=== PATIENT | male | born 1955 | race Caucasian/White ===

== ENCOUNTER 2017-11-24 08:10 | Day surgery (SDC) | payer OTHER ==
[~2017-11-24] VITALS: Ht 177.8 cm; Wt 98.9 kg
--- NOTE | 2017-11-24 09:53 | NUR ---
11/24/17 0953 Deandra Castro 0936 PT ARRIVED IN PACU SLEEPY. 0945 DR AT BEDSIDE TALKING TO PT. NO C/O'S. PACKING STRING VISIBLE AND TIED TO OUTSIDE OF NOSE. NO DRAINAGE NOTED. 0909 PT SIPPING ON WATER.
--- NOTE | 2017-11-24 10:08 | NUR ---
ICED WATER AND APPLESAUCE GIVEN. CALL LIGHT W/IN REACH. SPOUSE @ BS
--- NOTE | 2017-11-24 10:19 | NUR ---
PT ARRIVED LATE DUE TO WRONG TIME GIVEN BY 'S OFFICE. STAFF FIT PT BACK IN SCHEDULE AND DID A GREAT JOB. PT SEEMED PREPARED WELL HIS CARLEY. HAD A PRAYER WITH PT, WILL FOLLOW NEEDED
[2017-11-24] MEDS ORDERED: MOTRIN IB200 MG PO (10:29)
[2017-11-24] MEDS ORDERED: NORCO 5-325 TA1 EACH PO (10:30)
--- NOTE | 2017-11-24 10:37 | NUR ---
MORE ICED WATER GIVEN. MORE APPLESAUCE GIVEN. PATIENT TOLERATING THE APPLESAUCE WELL.
--- NOTE | 2017-11-24 11:10 | NUR ---
PT UP TO BR W/RN STANDBY. PT AMBULATES WELL AND REPORTS SUCCESSFUL VOID. PT REQ DC HOME. DC INSTRUCTIONS GIVEN IN PRESENCE OF SPOUSE AND BOTH VERBALIZE UNDERSTANDING.
--- NOTE | 2017-11-24 11:41 | NUR ---
LE 1120: PT DRESSES SELF IN PRESENCE OF SPOUSE AND TRANSFERS HIMSELF TO WELL AND IS DC HOME.
--- NOTE | 2017-12-01 13:32 | OR ---
[facility] [address], [place] [address] Signed DATE OF OPERATION: 11/24/2017 SURGEON: Manfred Brannon MD PREOPERATIVE DIAGNOSIS: Nasal obstruction due to septal deformity and inferior turbinate hypertrophy. POSTOPERATIVE DIAGNOSIS: Nasal obstruction due to septal deformity and inferior turbinate hypertrophy. PROCEDURE: Septoplasty, cautery of the inferior turbinates. ANESTHESIA: General LMA; SURFACE MOUNT TECHNOLOGY OPERATOR, Shane. PREOPERATIVE HISTORY: Kostas is a 61-year-old male with a long history of nasal obstruction, frequent infections, congestion, drainage, unresponsive to appropriate medications. CAT scan has been negative for sinus pathology. Exam in the office has shown a septal deformity and inferior turbinate hypertrophy, and he is taken to the operating for the above-mentioned procedures. OPERATIVE PROCEDURE AND FINDINGS: After informed consent, the patient was taken to the operating room, placed in the supine position where general LMA anesthesia was induced. The patient and procedure were verified. The patient received preoperative intranasal oxymetazoline and intravenous Ancef. Headlight speculum exam of the nasal cavity showed septal deformity bilaterally, inferior spurs which were obstructive. Septal mucosa was injected with 1% lidocaine with epi. Mucosa was elevated off the deviated septal bone and cartilage and this was removed with the Winnie. Septum was medialized, narrowed. Airway improved after this procedure. Inferior turbinates were then cauterized starting on the left side long handle needle point cautery. Multiple passes on the medial and inferior surface of the inferior turbinate starting anteriorly and extending all the way back posteriorly. Excellent decongestion of the turbinate was obtained. Same procedure on the right inferior turbinate. Packing was then placed. Trimmed Merocel equal amount each side coated with Neosporin, tied anteriorly over a pad. Hemostasis was verified. The pharynx was suctioned clear of blood secretions. The patient was then awakened, extubated, Electronically Signed By: MANFRED BRANNON MD 12/01/17 1332 PATIENT NAME: MARY SAMANO OPERATIVE REPORT DATE OF : 57 REPORT #: [id number] PHYSICIAN: MANFRED BRANNON MD PCP: MARIA ELENA SPANGLER MD REPORT IS CONFIDENTIAL AND NOT TO BE RELEASED WITHOUT AUTHORIZATION [facility] [address] [facility] [place], [place] [address] Signed transported to the recovery room in good condition. No complications. BLOOD LOSS: Minimal. SPECIMEN: No specimen. DRAINS: No drains. PACKING: One piece of Merocel each nostril. Manfred Brannon MD GC/MODL /[id number] Copies: ~ Electronically Signed By: MANFRED BRANNON MD 12/01/17 1332 PATIENT NAME: MARY SAMANO OPERATIVE REPORT DATE OF : 57 REPORT #: [id number] PHYSICIAN: MANFRED BRANNON MD PCP: MARIA ELENA SPANGLER MD REPORT IS CONFIDENTIAL AND NOT TO BE RELEASED WITHOUT AUTHORIZATION
== END 2017-11-24 11:20 | disposition home or self-care (01) ==
LOC: DS 08:10
PROVIDERS: Otolaryngology
PROC: 09SM0ZZ Reposition Nasal Septum, Open Approach (ICD-10-PCS; principal; 2017-11-24 08:30)
PROC: 095L0ZZ Destruction of Nasal Turbinate, Open Approach (ICD-10-PCS; 2017-11-24 08:30)
DX: J34.2 Deviated nasal septum (principal); J34.3 Hypertrophy of nasal turbinates; J32.9 Chronic sinusitis, unspecified; G47.30 Sleep apnea, unspecified; Z99.89 Dependence on other enabling machines and devices
CPT/HCPCS: 00160; J0690; J1100; J2405; J2704; J2765; J3010; J7120

== ENCOUNTER 2022-05-27 07:34 | Day surgery (SDC) | payer MEDICARE, OTHER ==
[~2022-05-27] VITALS: Ht 177.8 cm; Wt 103.0 kg
[~2022-05-27 07:34] MED LIST: BACTRIM DS TAB1 EACH PO; DIOVAN40 MG PO; MOTRIN IB200 MG PO; NORCO 5-325 TA1 EACH PO; VALACYCLOVIR1000 MG PO; VITAMIN D250 MCG PO; ZESTRIL20 MG PO
--- NOTE | 2022-05-27 09:02 | NUR ---
VISITED WITH PT PRIOR TO PROCEEDURE. ARRIVED WHILE WE WERE TALKING. PT EXPRESSED BEING READY FOR THE PROCEEDURE. AFTER STATING THAT PROCEEDURES WERE RUNNING LATE PT EXPRESSED BEING READY TO GO HOME AND EAT SOMETHING. PRAYED WITH PT AND .
--- NOTE | 2022-05-27 10:14 | NUR ---
05/27/22 1014 Sheets,Violetta 1009 PT ARRIVED TO PACU ON 3L VIA NC, PT WAKES TO VERBAL STIMULI. VSS. DECREASED HR BASELINE FOR PT. PT ENCOURAGED TO PASS GAS.
--- NOTE | 2022-05-27 12:23 | OR ---
[facility] [address] [place], [place] [address] Signed DATE OF OPERATION: 05/27/2022 SURGEON: Xochitl Matthew MD PREOPERATIVE DIAGNOSES: 1. Personal history of colonic polyps in 2016 at age 60. 2. Minimal diverticulosis. 3. Brother of metastatic colon cancer age 67. POSTOPERATIVE DIAGNOSES: 1. Minimal internal hemorrhoids with single internal anal skin tag. 2. 4 mm polyps at 35 cm, 100 cm, 120 cm and 115 cm. PROCEDURE: Colonoscopy with hot biopsy. ESTIMATED BLOOD LOSS: None. INDICATIONS: Kostas is a 66-year-old gentleman who returns for a followup colonoscopy. He had a barium enema in 2013 at the age of [address] Eckert. This was unremarkable. He came in 2015 at the age of 60 for a colonoscopy. He had a 5 mm tubular adenoma removed from his colon. He had minimal diverticulosis. He did well with Versed and fentanyl. His brother had of metastatic colon cancer at the age of 67. Kostas returns on the 5-year rotation. He has come through [address] and he said his memory is not quite as good as it used to be. His echocardiogram come out well. His repeat pulmonary function tests were not available just yet, but he said he felt much improved. In the office, I gave him a pamphlet on colonoscopy. We had reviewed the nature of the test together. He understands there is risk including, but not limited to gas bloating, crampy abdominal pain, bleeding, perforation requiring surgery, and missed diagnosis. We also reviewed the need for IV conscious sedation. He had expressed understanding and wished to proceed. PROCEDURE NOTE: Kostas was taken into our endoscopy suite and placed in the left lateral decubitus position. He was given a total of 5 mg of Versed and 150 mcg of fentanyl. A digital rectal exam was performed and this was unremarkable. Not much in the way of any external hemorrhoids. He had good sphincter tone. The adult colonoscope was introduced and advanced under direct visualization of the camera. He need a little extra sedation Electronically Signed By: XOCHITL MATTHEW MD 05/27/22 1223 PATIENT NAME: MARY SAMANO OPERATIVE REPORT DATE OF : 57 REPORT #: [id number] PHYSICIAN: XOCHITL MATTHEW MD PCP: FIDEL SPANGLER MD REPORT IS CONFIDENTIAL AND NOT TO BE RELEASED WITHOUT AUTHORIZATION [facility] [address] [place], [place] [address] Signed and abdominal compression as we went. His prep was quite good. The scope was then slowly withdrawn. We took pictures throughout for photodocumentation. We could easily see the cecum and the ileocecal valve. The above mentioned polyps were easily removed with the help of hot biopsy forceps. We did not specifically see any diverticula on this occasion. Once in the rectum, the scope was retroflexed and he has very minimal tiny internal hemorrhoid columns with a single tiny internal anal skin tag. After this, the gas was suctioned out and the colonoscope removed. Kostas tolerated the procedure quite well. RECOMMENDATIONS: I will see Kostas back in my office in 7 to 14 days to review his results. It looks like he will stay on the five year plan. Xochitl Matthew MD ALB/MODL /[id number] cc: MD Fidel Braun MD Copies: XOCHITL MATTHEW MD, MALCOLM MD ~ Electronically Signed By: XOCHITL MATTHEW MD 05/27/22 1223 PATIENT NAME: MARY SAMANO OPERATIVE REPORT DATE OF : 57 REPORT #: [id number] PHYSICIAN: XOCHITL MATTHEW MD PCP: FIDEL SPANGLER MD REPORT IS CONFIDENTIAL AND NOT TO BE RELEASED WITHOUT AUTHORIZATION
== END 2022-05-27 10:55 | disposition home or self-care (01) ==
LOC: OPS 07:34 → DS 07:37 → OPS 09:00
PROVIDERS: ATTEND Colon & Rectal Surgery
PROC: 0DBE8ZZ Excision of Large Intestine, Via Natural or Artificial Opening Endoscopic (ICD-10-PCS; principal; 2022-05-27 09:00)
DX: D12.6 Benign neoplasm of colon, unspecified (principal); K57.30 Diverticulosis of large intestine without perforation or abscess without bleeding; Z86.010 Personal history of colon polyps; Z80.0 Family history of malignant neoplasm of digestive organs; K64.8 Other hemorrhoids; K64.4 Residual hemorrhoidal skin tags
CPT/HCPCS: 88305; 99153; G0500; J2250; J3010; J7121